=== PATIENT | male | born 1970 | race Caucasian/White ===

== ENCOUNTER 2016-04-02 11:45 | Emergency (ER) | payer OTHER ==
[~2016-04-02] VITALS: Wt 73.5 kg
--- NOTE | 2016-04-02 12:55 | ERA ---
ER Documentation Chief Complaint Date/Time DATE: 04/02/16 TIME: 12:54 Chief Complaint LOW BACK PAIN X6 DAYS AFTER LIFTING HEAVY STUFF HPI The patient is a 45-year-old male, presenting to the ER because of acute low back pain 6 years ago after lifting heavy glass. The pain is 5-10, worse with movement. He denies fecal, urinary incontinence, fever, chills, neck pain, chest pain, abdominal pain, vomiting, dysuria. He does not smoke, drinks socially Past medical history: Hypertension Past surgical history: None ROS All systems reviewed and are negative except as per history of present illness. Medications Home Meds Active Scripts Hydrocodone/Acetaminophen ([place] 5-325 Tablet) 1 Each Tablet, 1 TAB PO Q6H Y for PAIN, #7 TAB Prov:GIOVANNI AUGUSTE MD 04/02/16 Carisoprodol* (Soma*) 350 Mg Tablet, 350 MG PO TID Y for MUSCLE SPASMS, #15 TAB Prov:GIOVANNI AUGUSTE MD 04/02/16 Ibuprofen* (Motrin*) 600 Mg Tab, 600 MG PO Q6H Y for PAIN AND OR ELEVATED TEMP, #30 TAB Prov:GIOVANNI AUGUSTE MD 04/02/16 Allergies Allergies: Coded Allergies: No Known Allergy (Unverified , 05/19/14) PMhx/Soc History of Surgery: No Anesthesia Reaction: No Hx Neurological Disorder: No Hx Respiratory Disorders: No Hx Cardiac Disorders: Yes (htn) Hx Psychiatric Problems: No Hx Miscellaneous Medical Probl: No Hx Alcohol Use: Yes Hx Substance Use: No Hx Tobacco Use: No Physical Exam Vitals Vital Signs Date Time Temp Pulse Resp B/P Pulse Ox O2 Delivery O2 Flow Rate FiO2 04/02/16 12:00 97.6 95 17 131/82 98 Physical Exam Const: No acute distress. Head: Atraumatic. Eyes: Normal Conjunctiva. ENT: Normal External Ears, Nose and Mouth. Neck: Full range of motion. No meningismus. Resp: Clear to auscultation bilaterally. Cardio: Regular rate and rhythm, no murmurs. Abd: Soft, non distended, normal bowel sounds, non tender. Skin: No petechiae or rashes. Back: No midline or flank tenderness. Mild left lumbar tenderness, no CVA tenderness, no crepitus Ext: No cyanosis, or edema. Neur: Awake and alert. No focal deficit Psych: Normal Mood and Affect. Results 24 hrs Current Medications Medications (Trade) Dose Ordered Sig/Michael Route PRN Reason Start Time Stop Time Status Last Admin Dose Admin Ketorolac Tromethamine (Toradol) 60 mg ONCE STAT IM 04/02/16 13:19 04/02/16 13:20 DC 04/02/16 13:25 Procedures/MDM MEDICAL MAKING DECISION: The patient is a 45-year-old male, presenting with acute low back after heavy lifting, most likely musculoskeletal pain. He was treated with Toradol 60 mg IM for pain with good response. The differential diagnoses considered include but are not limited to caudal equina syndrome, spinal abscess, DJD, diskitis, lumbar radiculopathy. Departure Diagnosis: Primary Impression: Acute back pain Condition: Good Comments He was discharged with terrance Natarajan Norco I discussed the findings with the patient. I advised the patient to follow-up with the primary physician in about 1-2 days, sooner if needed and return if any concern. GIOVANNI AUGUSTE MD Apr 02, 2016 12:54
[2016-04-02] MEDS ORDERED: KETOROLAC 60 MG INJ IM STA (13:19)
[2016-04-02] MEDS ORDERED: CARI350T PO (13:20)
[2016-04-02] MEDS ORDERED: IBUP-1542 PO (13:20)
[2016-04-02] MEDS ORDERED: HYDR-906 PO (13:21)
== END 2016-04-02 13:30 | disposition home or self-care (01) ==
LOC: FTE 11:45
DX: S39.92XA Unspecified injury of lower back, initial encounter (principal); I10 Essential (primary) hypertension; X50.0XXA Overexertion from strenuous movement or load, initial encounter; Y92.9 Unspecified place or not applicable
CPT/HCPCS: 96372; J1885; Z7502